=== PATIENT | female | born 1995 | race Caucasian/White ===

== ENCOUNTER 2023-12-20 07:11 | Inpatient (IN) | payer BC ==
[~2023-12-20 07:11] MED LIST: Lidocaine 1% 10 ML MDV ONE
[2023-12-20] MEDS ORDERED: Sodium Chloride 0.9% 10 ML Syringe FLUSH PRN (07:46)
[2023-12-20] MEDS ORDERED: Lidocaine 1% 50 ML MDV INJECT PRN (07:46)
[2023-12-20] MEDS ORDERED: Nalbuphine HCl 10 MG/ 1ML Amp IVPUSH PRN (07:46)
[2023-12-20] MEDS ORDERED: Ondansetron 4 MG/2 ML SDV IVPUSH PRN (07:46)
[2023-12-20] MEDS ORDERED: Oxytocin/Lactated Ringers 30 UNIT/500 ML BAG IV SCH (08:00)
[2023-12-20 08:07] LABS: BASOPHILS PERCENT AUTO 0.3 % (0.0-1.0); EOSINOPHILS ABSOLUTE AUTO 0.1 K/mm3 (0.0-0.4); EOSINOPHILS PERCENT AUTO 0.7 % (0.0-6.0); HEMATOCRIT 34.5 % (37.0-47.0); HEMOGLOBIN 11.6 gm/dl (12.0-16.0); IMMATURE GRAN ABSOLUTE AUTO 0.07 K/mm3 (0.00-0.05); IMMATURE GRAN PERCENT AUTO 0.6 % (0.0-0.4); LYMPHOCYTES ABSOLUTE AUTO 1.2 K/mm3 (1.0-4.8); LYMPHOCYTES PERCENT AUTO 10.1 % (24.0-44.0); MEAN CORPUSCULAR HEMOGLOBIN 29.5 pg (28.0-32.0); MEAN CORPUSCULAR HGB CONC 33.6 g/dl (32.0-36.0); MEAN CORPUSCULAR VOLUME 87.8 fl (83.0-99.0); MONOCYTES ABSOLUTE AUTO 0.5 K/mm3 (0.0-0.8); MONOCYTES PERCENT AUTO 3.8 % (0.0-8.0); NEUTROPHILS ABSOLUTE AUTO 10.1 K/mm3 (1.8-7.7); NEUTROPHILS PERCENT AUTO 84.5 % (41.0-71.0); PLATELET COUNT,PLT 196 K/mm3 (150-400); RED BLOOD CELL COUNT 3.93 M/mm3 (4.10-5.30); WHITE BLOOD CELL COUNT,WBC 11.99 K/mm3 (3.9-11.3)
[2023-12-20] MEDS: Lactated Ringers 1,000 ML IV SCH (08:13)
[2023-12-20] MEDS: Oxytocin/Lactated Ringers 30 UNIT/500 ML BAG IV SCH (08:13)
[2023-12-20] MEDS ORDERED: ePHEDrine 50 MG/ML SDV IVPUSH PRN (11:50)
[2023-12-20] MEDS ORDERED: diphenhydrAMINE 50 MG/ML SDV IVPUSH PRN (11:50)
[2023-12-20] MEDS ORDERED: Phenylephrine 1% 10 MG/ML SDV IVPUSH PRN (11:50)
[2023-12-20] MEDS: fentaNYL 100 MCG/2 ML SDV EPIDUR PRN (12:05)
[2023-12-20] MEDS: Bupivacaine/fentaNYL/NS 100 ML Bag EPIDUR PRN (12:05)
[2023-12-20] MEDS: Sodium Chloride 0.9% 10 ML Syringe FLUSH SCH (15:27)
[2023-12-21] MEDS ORDERED: Docusate Sodium 100 MG Cap PO PRN (01:10)
[2023-12-21] MEDS: Ibuprofen 600 MG Tab PO PRN (01:39)
[2023-12-21] MEDS: Benzocaine/Menthol 20%-0.5% Spray 78 GM Cannister TOP PRN (01:39)
[2023-12-21] MEDS: Witch Hazel Medicated Pads 40/Jar TOP PRN (01:40)
[2023-12-21] MEDS: Acetaminophen 325 MG Tab PO PRN (13:01)
[2023-12-21] MEDS: Loperamide 2 MG Cap PO PRN (20:13)
== END 2023-12-22 10:10 | disposition home or self-care (01) | DRG 560 ==
LOC: JD.OB 07:11 → OBSVTOIN 23:23 → JD.OB 23:23
PROVIDERS: ADMIT Obstetrics & Gynecology; ATTEND Obstetrics & Gynecology
PROC: 10E0XZZ Delivery of Products of Conception, External Approach (ICD-10-PCS; principal; 2023-12-20)
PROC: 10907ZC Drainage of Amniotic Fluid, Therapeutic from Products of Conception, Via Natural or Artificial Opening (ICD-10-PCS; 2023-12-20)
PROC: 00HU33Z Insertion of Infusion Device into Spinal Canal, Percutaneous Approach (ICD-10-PCS; 2023-12-20)
PROC: 3E033VJ Introduction of Other Hormone into Peripheral Vein, Percutaneous Approach (ICD-10-PCS; 2023-12-20)
PROC: 10H07YZ Insertion of Other Device into Products of Conception, Via Natural or Artificial Opening (ICD-10-PCS; 2023-12-20)
PROC: 3E0R3BZ Introduction of Anesthetic Agent into Spinal Canal, Percutaneous Approach (ICD-10-PCS; 2023-12-20)
PROC: 0KQM0ZZ Repair Perineum Muscle, Open Approach (ICD-10-PCS; 2023-12-20)
DX: O24.424 Gestational diabetes mellitus in childbirth, insulin controlled (principal); Z3A.39 39 weeks gestation of pregnancy; O70.1 Second degree perineal laceration during delivery; O35.03X1 Maternal care for (suspected) central nervous system malformation or damage in fetus, choroid plexus cysts, fetus 1; Z37.0 Single live birth; Z88.0 Allergy status to penicillin; Z88.8 Allergy status to other drugs, medicaments and biological substances
CPT/HCPCS: 36415; 51702; 59025; 59409; 82947; 85025; 86592; 86850; 86900; 86901; A9270-GY; J3010; J3490; J7120; J7999